=== PATIENT | female | born 1995 | race Caucasian/White ===

== ENCOUNTER 2018-03-25 11:44 | Outpatient (CLI) | payer MEDICAID ==
[~2018-03-25] VITALS: Ht 157.5 cm; Wt 61.3 kg
[2018-03-25] MEDS ORDERED: PNV11TAB PO (12:31)
[2018-03-25] MEDS ORDERED: LEVO100V4 IV (12:32)
[2018-03-25 12:34] VITALS: Ht 157.5 cm; Wt 61.3 kg
[2018-03-25 12:35] VITALS: BP 110/61; PULSE 68
--- NOTE | 2018-03-25 15:09 | PN ---
Triage Information Date/Time Reason for visit: 24+wks GA for labor Weeks of Gestation 24+ /Para 1/0 Diabetes: none Hypertention: none Objective Vital Signs Date Temp Pulse Resp B/P (MAP) Pulse Ox O2 O2 Flow FiO2 Time Delivery Rate 03/25/18 98.3 68 110/61 Room Air 12:35 (77) Heart Rate: 140's Contractions: None Results/Medications Results 24 hrs Laboratory Tests Test 03/25/18 14:18 Fibronectin NEGATIVE Disposition: Discharge Assessment/Plan FFN neg CXL 4cm No CTXs NST reassuring for GA ---.Discharged with precautions ---Questions answered --F/u with provider SHANNA RUBIO M.D. Mar 25, 2018 15:09
--- NOTE | 2018-03-25 15:23 | TRIAGE ---
OB Triage Datetime Report Generated by CPN: 03/25/2018 15:23 Datetime: 03/25/2018 15:01 Labor Evaluation Frequency: 0 Monitor Mode: External Pattern: Normal: <= 5 Contractions in 10 Minutes Resting Tone [place]: Relaxed Contraction Comments: none noted Datetime: 03/25/2018 12:50 Assessment Type: Triage Maternal Assessment Level of Consciousness: Fully Conscious DTR's/Clonus: DTRs 2+; No Clonus Headache: Denies Blurred Vision: No Respiratory Effort: Unlabored; Regular Rhythm; Equal Expansion Breath Sounds, Left: Clear and Equal Breath Sounds, Right: Clear and Equal Nausea/Vomiting: Denies RUQ Epigastric Pain: Denies Lower Extremities Edema: None Degree: None Upper Extremities Edema: None Degree: None Facial Edema: None Fall Risk Assessment History of Falling: (0) No Secondary Diagnosis: (0) No Ambulatory Aid: (0) Bedrest/Nurse Assist IV Therapy: (0) No Gait: (0) Normal/Bedrest/Immobile Mental Status: (0) Oriented to Own Ability Fall Score: 0 Fall Risk Score Definition: No Risk: No action required Datetime: 03/25/2018 12:49 Time of Arrival: 03/25/2018 11:40 EGA: 24.0 Arrived By: Ambulatory Arrived From: Home Chief Complaint: [facility]'S YESTERDAY PT STATS SHE HAS NO PAIN TODAY Movement: Present Contractions: Denies/Absent Rupture of Membranes: Denies Vaginal Bleeding: None Vaginal Discharge: Denies Recent Sexual Intercouse: Denies Abdominal Trauma: Not Applicable Patient Complaints: Other Time Provider Notified: 03/25/2018 13:48 Provider Notified: dr winters Initial Plan: NST Datetime: 03/25/2018 12:30 Labor Evaluation Frequency: 0 Pattern: Normal: <= 5 Contractions in 10 Minutes Resting Tone [place]: Relaxed Heart Rate FHR Baseline Rate: 145 Monitor Mode: External US Variability: Minimal - Undetectable to <=5 bpm Accelerations: 10X10 Decelerations: None Category: Category I
== END 2018-03-25 15:00 | disposition home or self-care (01) ==
LOC: OBT 11:44 → L-D 11:44 → OBT 15:00
PROVIDERS: ATTEND Specialist
DX: O62.9 Abnormality of forces of labor, unspecified (principal); Z3A.24 24 weeks gestation of pregnancy
CPT/HCPCS: 76815; 76817; 82731; Z7500; G0463